=== PATIENT | male | born 1980 | race American Indian/Alaskan Native ===

== ENCOUNTER 2016-09-30 16:12 | Emergency (ER) | payer SELFPAY ==
[2016-09-30 16:39] VITALS: BP 130/88
[2016-09-30] MEDS ORDERED: BOOSTRIX IM ONE (17:45)
[2016-09-30] MEDS ORDERED: MOTRIN PO ONE (17:45)
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
[2016-09-30] MEDS ORDERED: TRIPLE ANTIBIOTIC TP SCH (20:00)
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
== END 2016-09-30 19:18 | disposition home or self-care (01) ==
LOC: ED 16:12
DX: S00.81XA Abrasion of other part of head, initial encounter (principal); S60.511A Abrasion of right hand, initial encounter; F17.200 Nicotine dependence, unspecified, uncomplicated; F12.90 Cannabis use, unspecified, uncomplicated; Y04.2XXA Assault by strike against or bumped into by another person, initial encounter; Y93.89 Activity, other specified; Y99.8 Other external cause status; Y92.009 Unspecified place in unspecified non-institutional (private) residence as the place of occurrence of the external cause
CPT/HCPCS: 70450; 90471; 90715; A6250